=== PATIENT | male | born 1995 | race Caucasian/White ===

== ENCOUNTER 2021-07-05 17:44 | Inpatient (IN) | payer BC ==
--- NOTE | 2021-07-05 18:58 | ED ---
General Adult HPI - General Chief complaint: Psychiatric Symptoms Stated complaint: mental health, suicidal Time Seen by Provider: 07/05/21 18:40 Source: patient, family (Aunt Cyn), RN notes reviewed, old records reviewed Mode of arrival: ambulatory Limitations: no limitations - History of Present Illness Initial comments: This is a well-appearing 25-year-old male, alert and oriented 4, presents to the emergency room complaints of depression and suicidal ideation for the past week. Patient states that he broke up with his girlfriend and he has been increasingly depressed. He knew he should come in when he started having thoughts of suicide. He has no plan. He has no previous attempts. He has no previous hospitalizations. He states that he has seen his primary care doctor for depression in the past, age 18, and was put on medication but he did not take it for very long. He is a nonsmoker, denies any drug use, does drink alcohol occasionally. He has not had any alcohol today. He did come into the emergency room with his Aunt Cyn who is at bedside. -: week(s) (1) Severity scale (1-10): 0 Associated Symptoms: denies other symptoms Treatments Prior to Arrival: none - Related Data Home Medications Medication Instructions Recorded Confirmed No Known Home Medications 07/05/21 07/05/21 Allergies Allergy/AdvReac Type Severity Reaction Status Date / Time No Known Allergies Allergy Verified 07/05/21 19:24 Review of Systems ROS Statement: Those systems with pertinent positive or pertinent negative responses have been documented in the HPI. ROS Other: All systems not noted in ROS Statement are negative. Past Medical History Past Medical History: No Reported History History of Any Multi-Drug Resistant Organisms: None Reported Past Surgical History: No Surgical Hx Reported Past Psychological History: No Psychological Hx Reported, Depression Smoking Status: Current every day smoker Past Alcohol Use History: Occasional Past Drug Use History: None Reported General Exam Limitations: no limitations General appearance: alert, in no apparent distress Head exam: Present: atraumatic, normocephalic, normal inspection Eye exam: Present: normal appearance, EOMI ENT exam: Present: normal exam, normal oropharynx, mucous membranes moist Neck exam: Present: normal inspection, full ROM. Absent: tenderness, meningismus, lymphadenopathy, thyromegaly Respiratory exam: Present: normal lung sounds bilaterally. Absent: respiratory distress, wheezes, rales, rhonchi, stridor Cardiovascular Exam: Present: regular rate, normal rhythm, normal heart sounds. Absent: systolic murmur, diastolic murmur, rubs, gallop, clicks GI/Abdominal exam: Present: soft, normal bowel sounds. Absent: distended, tenderness, guarding, rebound, rigid Extremities exam: Present: normal inspection, full ROM, normal capillary refill. Absent: tenderness, pedal edema, joint swelling, calf tenderness Back exam: Present: normal inspection, full ROM. Absent: tenderness, CVA tenderness (R), CVA tenderness (L), rash noted Neurological exam: Present: alert, oriented X3, normal gait Psychiatric exam: Present: depressed, suicidal ideation. Absent: agitated, anxious, flat affect, manic, homicidal ideation Skin exam: Present: warm, dry, intact, normal color. Absent: rash, cyanosis, diaphoretic Course Vital Signs 07/05/21 18:34 Temperature 98.4 F Pulse Rate 93 Respiratory 16 Rate Blood Pressure 124/72 O2 Sat by Pulse 98 Oximetry Medical Decision Making - Medical Decision Making This is a well-appearing 25-year-old male patient that had a recent breakup with his girlfriend. He's been having suicidal thoughts in to the emergency room for therapeutic intervention. Patient has no medical concerns. He is not taking any medication on a daily basis. He has not had any suicide attempts. EPS ALEKS Trujillo spoke with patient and he is willing to sign himself in for therapy for his depression and suicidal ideation.. - Lab Data Lab Results 07/05/21 Range/Units 20:28 Coronavirus (PCR) Not Detected (Not Detectd) Disposition Clinical Impression: Depression, Suicidal ideation Disposition: ADMITTED IP TO THIS HOSP Decision Date: 07/05/21 Decision Time: 20:00
[2021-07-05] MEDS ORDERED: ACETAMINOPHEN TAB 325 MG TAB PO PRN (21:45)
[2021-07-05] MEDS ORDERED: MAGNESIUM HYDROXIDE 2,400 MG/10 ML CUP PO PRN (21:45)
[2021-07-05] MEDS ORDERED: MAG HYDROX/AL HYDROX/SIMETH 30 ML CUP PO PRN (21:45)
[2021-07-05] MEDS ORDERED: LORazepam 2 MG/ML INJ IM PRN (21:52)
[2021-07-05] MEDS ORDERED: HALOPERIDOL LACTATE 5 MG/ML 1 ML VIAL IM PRN (21:54)
[2021-07-05] MEDS: LORazepam 1 MG TAB PO PRN (22:36)
[2021-07-06] MEDS: NICOTINE 14MG/24HR PATCH TRANSDERM SCH (09:24)
[2021-07-06 10:44] LABS: Basophils % (A) 0 %; Eosinophils # (A) 0.2 k/uL (0-0.7); Eosinophils % (A) 2 %; HCT 41.5 % (39.0-53.0); HGB 14.5 gm/dL (13.0-17.5); Lymphocytes # (A) 2.2 k/uL (1.0-4.8); Lymphocytes % (A) 20 %; MCH 30.8 pg (25.0-35.0); MCHC 34.9 g/dL (31.0-37.0); MCV 88.1 fL (80.0-100.0); Mean Platelet Volume 8.3; Monocytes # (A) 1.5 k/uL (0-1.0); Monocytes % (A) 14 %; Neutrophils # (A) 6.9 k/uL (1.3-7.7); Neutrophils % (A) 63 %; Platelet Count 249 k/uL (150-450); RBC 4.71 m/uL (4.30-5.90); RDW 12.5 % (11.5-15.5); WBC 10.8 k/uL (3.8-10.6)
[2021-07-06] MEDS: SERTRALINE 50 MG TAB PO SCH (10:58)
[2021-07-06 11:12] LABS: ALT 25 U/L (4-49); AST 19 U/L (17-59); African American GFR (CKD) >90 (>60 ml/min/1.73 sqM); Albumin 4.7 g/dL (3.5-5.0); Alkaline Phosphatase 61 U/L (38-126); Anion Gap 10 mmol/L; Blood Urea Nitrogen 14 mg/dL (9-20); Calcium 9.9 mg/dL (8.4-10.2); Carbon Dioxide 26 mmol/L (22-30); Chloride 101 mmol/L (98-107); Glucose 98 mg/dL (74-99); Non-African American GFR(CKD) >90 (>60 ml/min/1.73 sqM); Potassium 3.7 mmol/L (3.5-5.1); Sodium 137 mmol/L (137-145); Total Bilirubin 0.8 mg/dL (0.2-1.3); Total Protein 7.8 g/dL (6.3-8.2)
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
[2021-07-06 17:49] LABS: LDL Cholesterol,Calculated 127.8 mg/dL (0.0-131.0)
--- NOTE | 2021-07-07 02:48 | P.CONS ---
History of Present Illness - Reason for Consult Consult date: 07/07/21 - History of Present Illness The patient is a 25-year-old male with a PMH of anxiety and depression who presents to the emergency room with complaints of depressive thoughts and suicidal ideation. The patient was admitted to the mental health unit where he was seen and evaluated. He reports struggling with several things in his social life that he did not wish to disclose at the time of interview. He did endorse using vapes daily and smoking half pack of cigarettes daily. He denied any additional substance use or alcohol use. He further denied any physical complaints. He denied chest discomfort, shortness of breath, fever, chills, cough, nausea, vomiting, abdominal pain or diarrhea. Review of systems: Pertinent positives and negatives as discussed in HPI, a complete review of systems was performed and all other systems are negative. Physical examination: General: non toxic, no distress, appears at stated age, normal weight Derm: no unusual rashes/lesions no unusual ecchymoses, warm, dry Head: atraumatic, normocephalic, symmetric Eyes: EOMI, no lid lag, anicteric sclera, pupils equal round reactive to light ENT: Nose and ears atraumatic, no thrush, no pharyngeal erythema Neck: No thyromegaly, no cervical lymphadenopathy, trachea midline, supple Mouth: no lip lesion, mucus membranes moist Cardiovascular: S1S2 reg, no murmur, positive posterior tibial pulse bilateral, no edema, capillary refill less than 2 seconds Lungs: CTA bilateral, no rhonchi, no rales , no accessory muscle use Abdominal: soft, nontender to palpation, no guarding, no appreciable organomegaly, normal bowel sounds Ext: no gross muscle atrophy, muscle strength 5 out of 5 in all 4 extremities grossly, no contractures, Neuro: CN II-XI grossly intact, light touch intact all 4 extremities, finger to nose within normal limits, Psych: Alert, oriented, appropriate affect Assessment/plan Vape and tobacco use -Advised on importance of cessation Leukocytosis -Likely due to acute stressor -No signs of active infection at this time -Monitor for now Depression and suicidal ideation -As per psychiatry Thank you for allowing us to participate in the care of this patient. We will follow peripherally. Do not hesitate to contact us with questions. Someone can be reached from the [facility] hospitalist group at all hours of the day at [phone]. Past Medical History Past Medical History: No Reported History History of Any Multi-Drug Resistant Organisms: None Reported Past Surgical History: No Surgical Hx Reported Past Psychological History: No Psychological Hx Reported, Depression Smoking Status: Current every day smoker Past Alcohol Use History: Occasional Past Drug Use History: None Reported Medications and Allergies Home Medications Medication Instructions Recorded Confirmed Type No Known Home Medications 07/05/21 07/05/21 History Allergies Allergy/AdvReac Type Severity Reaction Status Date / Time No Known Allergies Allergy Verified 07/05/21 19:24 Results CBC & Chem 7: 07/06/21 10:26 07/06/21 10:26 Labs: Abnormal Lab Results - Last 24 Hours (Table) 07/06/21 07/06/21 Range/Units 10:26 10:26 WBC 10.8 H (3.8-10.6) k/uL Monocytes # 1.5 H (0-1.0) k/uL Creatinine 0.62 L (0.66-1.25) mg/dL HDL Cholesterol 39.40 L (40.00-60.00) mg/dL
[2021-07-07] MEDS: SERTRALINE 50 MG TAB PO SCH (08:23)
[2021-07-07] MEDS: NICOTINE 14MG/24HR PATCH TRANSDERM SCH (08:23)
--- NOTE | 2021-07-07 16:39 | PN ---
PROGRESS NOTE DATE OF SERVICE: 07/07/2021. CHIEF COMPLAINT: The patient was depressed. He had developed suicidal thinking without a plan. He stated he did not want things to get worse for him so he came to the hospital for help. INTERVAL HISTORY: Patient has been doing fair. He had a quiet day yesterday. He comes out on the unit. He does interact some with others. He attended all but 1 group yesterday. He seemed to engage well in the groups. He said he slept well last night. Today he has been up. He has been out. He has attended groups today. It is noteworthy that the patient had talked to me later in the day yesterday very much wanting to be discharged as soon as possible. He said that he felt a lot of anxiety here and felt that he could do better at home. On the other hand, he was able to acknowledge some of the issues that led him coming into the hospital. He was vague on specifics. It is noted that when I asked him about why his aunt thought it was so important for him to come to the hospital, he really could not give much insight regarding that, though he did seem to indicate that she was very concerned. I did raise a question that he may understate some of the difficulties he has been having. Overall he seems to be doing a little better today. He seems to be more accepting of the idea that he is in the hospital. He still is hopeful of getting out soon, though less insistent on that happening in some immediate way. He tolerates the start of Zoloft as his primary medication. MENTAL STATUS EXAM: Patient sat with some restlessness. He gave fairly good eye contact. He answered questions appropriately. His thoughts were clear. He continues to be somewhat vague about some issues in his situation. His affect was constricted and anxious. His mood dysphoric. He seemed somewhat distressed. There was no indication of thought disorder. He voiced no thoughts of harm. Cognition was clear. ASSESSMENT: I will continue the current diagnosis and treatment plan. I will continue the patient on Zoloft 50 mg a day. I reviewed medication issues with the patient including indications of an antidepressant and typical treatment process for working with an antidepressant. I suggested that it would be reasonable to look at an increase in Zoloft fairly early on. We discussed in general issues regarding discharge planning and anticipated followup care. We will focus on stabilization and discharge planning. MMODL / IJN: [id number] /
[2021-07-08] MEDS: LORazepam 1 MG TAB PO PRN ×2 (01:41→22:30)
[2021-07-08] MEDS: NICOTINE 14MG/24HR PATCH TRANSDERM SCH (08:14)
[2021-07-08] MEDS: SERTRALINE 50 MG TAB PO SCH (08:14)
--- NOTE | 2021-07-08 11:40 | P.PN ---
Progress Note - Text Progress Note Date: 07/08/21 Interval History: Patient was seen wandering the hallways and was directable and agreeable to speak with press writer in the office. The patient reports that he is feeling better. He reports no significant side effects of his medications. He reports no suicidal or homicidal ideation, intention, and/or plan today. He reports no issues regarding his sleep or appetite. He denies any psychotic symptoms. He is open to increasing his zoloft to a therapeutic dose. Mental Status Exam: General Appearance: Patient appears to be stated age is alert, directable, and cooperative. Behavior: Patient is calmly seated without any agitated behavior. Speech: Patient's speech is fluent and nonpressured. Mood/Affect: Mood is improving mildly, affect is congruent and constricted. Suicidality/Homicidality: Patient denies having any suicidal or homicidal ideation intent or plan. Perceptions: Patient denies any visual hallucinations and denies any auditory hallucinations Though content/process: There is no evidence of any delusional thought content and thought process is linear and goal-directed. Memory and concentration: AOX3, grossly intact for the purposes of this session Judgment and insight: Improving mildly Assessment Major Depressive Disorder Plan: -Patient continues to meet criteria for inpatient psychiatric admission for symptom stabilization and safety. Patient has signed adult voluntary form and medication consent and was placed in patient's chart. -Medications: Increase zoloft to 75 mg daily for depression/anxiety. -When necessary Ativan and Haldol for agitation/aggression. -SW on board for discharge planning. Encouraged the patient to participate in milieu.
[2021-07-09 07:09] VITALS: BP 130/72; PULSE 106; RESP 18; TEMP 97.7
[2021-07-09] MEDS: NICOTINE 14MG/24HR PATCH TRANSDERM SCH (08:36)
[2021-07-09] MEDS ORDERED: SERTRALINE 25 MG TAB PO SCH (09:00)
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
== END 2021-07-09 13:55 | disposition home or self-care (01) | DRG 881 ==
LOC: EC 17:44 → 3MHU 21:32
PROVIDERS: ADMIT Psychiatry & Neurology Psychiatry; ATTEND Psychiatry & Neurology Psychiatry
DX: F32.9 Major depressive disorder, single episode, unspecified (principal); R45.851 Suicidal ideations; F17.210 Nicotine dependence, cigarettes, uncomplicated; Z20.822 Contact with and (suspected) exposure to COVID-19; F41.0 Panic disorder [episodic paroxysmal anxiety]; D72.829 Elevated white blood cell count, unspecified; F12.90 Cannabis use, unspecified, uncomplicated; F17.290 Nicotine dependence, other tobacco product, uncomplicated; Z71.6 Tobacco abuse counseling
CPT/HCPCS: 80053; 80061; 82075; 83036; 84443; 85025; 87635; 99285